=== PATIENT | male | born 1970 | race Caucasian/White ===

== ENCOUNTER → 2023-04-06 | Outpatient (CLI) | payer OTHER ==
--- NOTE | 2023-04-06 16:47 | US ---
EXAMINATION TYPE: US venous doppler duplex LE RT DATE OF EXAM: 04/06/2023 3:29 PM COMPARISON: NONE CLINICAL INDICATION: Male, 52 years old with history of R07.1 CHEST PAIN M79.661 PAIN IN RIGHT LOWER LEG; Chest pain with deep inspiration x 1 day; Calf cramping since start of new job 2 weeks ago; Deepika ent denies any other signs or symptoms or relevant history SIDE PERFORMED: Right TECHNIQUE: The lower extremity deep venous system is examined utilizing real time linear array sonog zackery with graded compression, doppler sonography and color-flow sonography. VESSELS IMAGED: Common Femoral Vein Deep Femoral Vein Greater Saphenous Vein * Femoral Vein Popliteal Vein Small Saphenous Vein * Proximal Calf Veins (* superficial vessels) Right Leg: Negative for DVT Left Leg: NA IMPRESSION: Grayscale, color doppler, spectral doppler imaging performed of the deep veins of the lo wer extremities. There is normal flow, compressibility, vascular waveforms.
== END | disposition home or self-care (01) ==
LOC: RADUSWWP 15:25
PROVIDERS: ATTEND Emergency Medicine
DX: R25.2 Cramp and spasm (principal); R07.1 Chest pain on breathing; M79.661 Pain in right lower leg